=== PATIENT | male | born 1960 | race Caucasian/White ===

== ENCOUNTER → 2020-06-16 10:17 | Outpatient (BNVA) | payer OTHER, SELFPAY | PROVIDERS: PCP Nurse Practitioner Family; Visit Provider Internal Medicine | DX: I82.419 Acute embolism and thrombosis of unspecified femoral vein (principal); I82.439 Acute embolism and thrombosis of unspecified popliteal vein; Z79.01 Long term (current) use of anticoagulants; Z51.81 Encounter for therapeutic drug level monitoring | CPT/HCPCS: 85610; 99211 ==

== ENCOUNTER → 2020-07-05 10:24 | Outpatient (REF) | payer OTHER, SELFPAY ==
--- NOTE | 2020-07-05 10:30 | CA_ITS ---
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 The visually estimated ejection fraction is between 50-55%. - The basal inferior segment is hypokinetic. - There is mild calcification of the aortic valve. Findings Left Ventricle Normal left ventricular cavity size. There is normal left ventricular wall thickness. The left ventricular systolic function is low normal. The visually estimated ejection fraction is between 50-55%. There is no evidence of regional wall motion abnormalities. Diastolic function is normal for age. Wall Motion Rest Echo Findings The basal inferior segment is hypokinetic. Right Ventricle Normal right ventricular cavity size and systolic function. Atria The left atrium is normal in size. The right atrium is normal in size. Aortic Valve There is a normal trileaflet aortic valve. There is mild calcification of the aortic valve. There is no aortic valve stenosis. There is no aortic valve regurgitation. Mitral Valve The mitral valve appears normal. There is trace mitral valve regurgitation. There is no mitral valve stenosis. Pulmonic Valve The pulmonic valve was not well visualized. Tricuspid Valve Normal tricuspid valve structure. There is no tricuspid valve regurgitation. Tricuspid regurgitation envelope is inadequate for calculation of right ventricular systolic pressure. Great Vessels The aortic annulus, sinuses of valsalva, and asc aorta are normal in size. Venous The inferior vena cava is normal in size and collapses greater than 50% with inspiration. Pericardium/Pleural There is no evidence of pericardial effusion. Prior Study Comparison Changes noted compared to prior study dated: 09/19/2017. LVEF slightly lower. Review of images shows basal inferior hypokinesis in prior study. Measurements M-Mode Liner Measurements Normals - Women/Men LVIDd: 4.67 3.9-5.3/4.2-5.9 cm LVIDd Index: 2.21 1.9-3.2 cm/m2 LVIDs: 2.97 2.0-3.8 cm M-Mode Volumes LV EDV: 101.00 LV ESV: 34.20 2D Linear Measurements IVSd: 1.04 0.6-0.9/0.6-1.0 cm LVIDd: 4.61 3.9-5.3/4.2-5.9 cm LVIDd Index: 2.18 2.4-3.2/2.2-3.1 cm/m2 LVIDs: 3.37 2.0-3.6 cm LVPWd: 1.09 0.7-1.1 cm LA Diam: 3.20 2.7-3.8/3.0-4.0 cm LAIDs Index: 1.52 1.5-2.3 cm/m2 LV Mass: 216.54 67-162/88-224 g LV Mass Index: 102.62 43-95/49-115 g/m2 2D Systolic Function EF 4C: 51.90 >55% EF 2C: 53.70 >55% EF BiP: 53.70 >55% M-Mode Systolic Function FS: 36.40 27-47/25-43% LVEF: 66.10 >55% Mitral Valve MV Pk E: 0.92 MV PK A: 0.82 MV Decel Time: 222.00 E/A: 1.10 E'Lateral: 8.70 E'Medial: 9.28 E/E' Med: 9.90 E/E' Lat: 10.60 PHT: 65.00 MVA PHT: 3.38 Decel [place]: 4.15 Aortic Valve AoV Pk Uday: 119.00 AoV Pk Grad: 6.00 Diastolic Function MV Pk E: 0.92 MV Pk A: 0.82 E/A: 1.10 E'Medial: 9.28 E/E' Med: 9.90 E' Laterial: 8.70 E/E' Lat: 10.60 Tricuspid Valve RA Press: 3.00 Updated in Other Vendor System with Status of Final Feng Pelaez MD electronically signed on 07/05/2020 12:31:10 PM with status of Final
== END ==
LOC: HO.CARD 10:24
PROVIDERS: PCP Nurse Practitioner Family; Visit Provider Nurse Practitioner Family
DX: I38 Endocarditis, valve unspecified (principal); R94.30 Abnormal result of cardiovascular function study, unspecified; Z79.01 Long term (current) use of anticoagulants
CPT/HCPCS: 85610; 93306; 99212

== ENCOUNTER → 2020-07-14 11:54 | Outpatient (BNVA) | payer OTHER, SELFPAY | PROVIDERS: PCP Nurse Practitioner Family; Visit Provider Internal Medicine | DX: T82.898A Other specified complication of vascular prosthetic devices, implants and grafts, initial encounter (principal); Z51.81 Encounter for therapeutic drug level monitoring; Z79.01 Long term (current) use of anticoagulants | CPT/HCPCS: 85610; 99211 ==

== ENCOUNTER → 2020-08-04 08:59 | Outpatient (BNVA) | payer OTHER, SELFPAY | PROVIDERS: PCP Nurse Practitioner Family; Visit Provider Internal Medicine | DX: I25.10 Atherosclerotic heart disease of native coronary artery without angina pectoris (principal); I73.9 Peripheral vascular disease, unspecified; R93.1 Abnormal findings on diagnostic imaging of heart and coronary circulation | CPT/HCPCS: 85610; 93005; 99202; 99211 ==

== ENCOUNTER → 2020-08-09 10:45 | Outpatient (BNVA) | payer OTHER, SELFPAY | PROVIDERS: PCP Nurse Practitioner Family; Visit Provider Internal Medicine | DX: T82.898D Other specified complication of vascular prosthetic devices, implants and grafts, subsequent encounter (principal); Z51.81 Encounter for therapeutic drug level monitoring; Z79.01 Long term (current) use of anticoagulants | CPT/HCPCS: 85610; 99211 ==

== ENCOUNTER → 2020-08-18 10:11 | Outpatient (BNVA) | payer OTHER, SELFPAY | PROVIDERS: PCP Nurse Practitioner Family; Visit Provider Surgery Vascular Surgery | DX: I73.9 Peripheral vascular disease, unspecified (principal) | CPT/HCPCS: 99212 ==

== ENCOUNTER → 2020-08-23 09:44 | Outpatient (BNVA) | payer OTHER, SELFPAY | PROVIDERS: PCP Nurse Practitioner Family; Visit Provider Internal Medicine | DX: T82.898A Other specified complication of vascular prosthetic devices, implants and grafts, initial encounter (principal); Z51.81 Encounter for therapeutic drug level monitoring; Z79.01 Long term (current) use of anticoagulants | CPT/HCPCS: 85610; 99211 ==

== ENCOUNTER → 2020-09-08 09:20 | Outpatient (BNVA) | payer OTHER, SELFPAY | PROVIDERS: PCP Nurse Practitioner Family; Visit Provider Internal Medicine | DX: T82.898A Other specified complication of vascular prosthetic devices, implants and grafts, initial encounter (principal); Z51.81 Encounter for therapeutic drug level monitoring; Z79.01 Long term (current) use of anticoagulants | CPT/HCPCS: 85610; 99211 ==

== ENCOUNTER → 2020-10-06 09:09 | Outpatient (BNVA) | payer OTHER, SELFPAY | PROVIDERS: PCP Nurse Practitioner Family; Visit Provider Internal Medicine | DX: T82.898A Other specified complication of vascular prosthetic devices, implants and grafts, initial encounter (principal); I82.409 Acute embolism and thrombosis of unspecified deep veins of unspecified lower extremity; Z51.81 Encounter for therapeutic drug level monitoring; Z79.01 Long term (current) use of anticoagulants | CPT/HCPCS: 85610; 99211 ==

== ENCOUNTER 2020-10-17 | Outpatient (REF) | payer OTHER, SELFPAY | END 2020-10-17 00:01 | LOC: CF | PROVIDERS: Visit Provider Internal Medicine | DX: R31.0 Gross hematuria (principal) | CPT/HCPCS: 85610; 99211 ==

== ENCOUNTER 2020-10-25 | Outpatient (REF) | payer OTHER, SELFPAY | END 2020-10-25 00:01 | disposition home or self-care (01) | LOC: CF | PROVIDERS: PCP Nurse Practitioner Family; Visit Provider Internal Medicine | DX: R31.0 Gross hematuria (principal); T82.898A Other specified complication of vascular prosthetic devices, implants and grafts, initial encounter; Z51.81 Encounter for therapeutic drug level monitoring; Z79.01 Long term (current) use of anticoagulants | CPT/HCPCS: 85610; 99211 ==

== ENCOUNTER 2020-10-25 11:49 | Outpatient (REF) | payer OTHER, SELFPAY ==
--- NOTE | ~2020-10-25 | CT_ITS ---
EXAMINATION: CT ABDOMEN AND PELVIS WITHOUT AND WITH CONTRAST CLINICAL INFORMATION: Hematuria. COMPARISON: None. TECHNIQUE: Noncontrast CT of the abdomen and pelvis is performed followed by split bolus contrast-enhanced images using 85 mL Omnipaque 350 contrast.? Postcontrast imaging is performed during the combined nephrogram and excretion phase. Sagittal and coronal reformatted images were obtained on the technologist's workstation for both the precontrast and postcontrast phases. This CT examination was performed using dose optimization techniques as appropriate, variously including the following: *Automated exposure control *Adjustment of mA and/or kV according to patient size (this includes techniques or standardized protocols for targeted exams where dose is matched to indication/reason for exam; i.e. extremities or head) *Use of iterative reconstruction technique DLP: 868 mGy-cm. FINDINGS: LUNG BASES: The visualized lung bases are unremarkable. LIVER, GALLBLADDER, AND BILIARY TREE: The liver is normal in size, shape, and attenuation. No focal hepatic lesion or biliary ductal dilatation is present. The gallbladder is unremarkable with no evidence of radiopaque gallstones, gallbladder wall thickening, or obvious pericholecystic inflammatory changes. PANCREAS: Unremarkable. SPLEEN: Unremarkable. ADRENAL GLANDS: Unremarkable. KIDNEYS AND URETERS: There are vascular calcifications seen in bilateral renal radha. 2 mm calcification or stone in the lower pole calyx left kidney. No hydronephrosis seen. There is bilateral perinephric stranding. Postcontrast there are bilateral symmetrical nephrograms with a nonenhancing 8 mm cortical cyst lower pole left kidney. The left kidney measures 11.8 cm in length. The right kidney measures 11.3 cm in length. There is no enhancing renal mass. Delayed images reveal excreted contrast opacifying bilateral kidney pelvises and ureters without any obstruction or intraluminal filling defect. Minimal tortuosity seen in the distal segment entering the upper pelvis. The right distal ureter is opacified well and appears unremarkable. The left distal ureter is not well opacified. However, there is no proximal ureteral dilatation. BLADDER: There is mild indentation of the base of bladder from prostate. GASTROINTESTINAL TRACT: There is scattered stool and gas seen throughout the colon without any distention. The small bowel loops, ileocecal junction appear unremarkable. No free air or free fluid. ABDOMINAL WALL: No significant hernia is appreciated. LYMPH NODES: Normal. VASCULAR: Mild ectasia of the distal abdominal aorta measuring 2.3 x 2.4 cm with mild atherosclerotic calcification of abdominal aorta and common iliac arteries. PELVIC VISCERA: The prostate gland is mildly enlarged indenting the base of the bladder. No abnormal pelvic or inguinal lymph nodes seen. Prominent right inguinal canal containing fat is noted. OSSEUS STRUCTURES: There are degenerative disc changes and vacuum disc phenomena L5-S1 disc level. CT/CT urogram IMPRESSION: Punctate nonobstructive 2 mm radiopaque calculi left kidney. Bilateral mild perinephric stranding. Small cyst lower pole cortex left kidney. No enhancing renal mass or hydronephrosis. Mild constipation. Mildly ectatic distal abdominal aorta measuring 2.3 x 2.4 cm.
[2020-10-25] MEDS: iohexoL 350 MG/ML 100 ML INFUS..BTL IV (16:09)
== END 2020-10-25 11:50 | disposition home or self-care (01) ==
LOC: HO.MDS 11:49
PROVIDERS: PCP Nurse Practitioner Family; Visit Provider Urology
DX: R31.0 Gross hematuria (principal)
CPT/HCPCS: 74178; 96360; 96361; Q9967

== ENCOUNTER → 2020-11-03 11:06 | Outpatient (BNVA) | payer OTHER, SELFPAY | PROVIDERS: PCP Nurse Practitioner Family; Visit Provider Internal Medicine | DX: I73.9 Peripheral vascular disease, unspecified (principal); T82.898A Other specified complication of vascular prosthetic devices, implants and grafts, initial encounter; Z51.81 Encounter for therapeutic drug level monitoring; Z79.01 Long term (current) use of anticoagulants | CPT/HCPCS: 85610; 99211 ==

== ENCOUNTER → 2020-11-11 09:16 | Outpatient (BNVA) | payer OTHER, SELFPAY | PROVIDERS: PCP Nurse Practitioner Family; Visit Provider Internal Medicine | DX: I73.9 Peripheral vascular disease, unspecified (principal); T82.898A Other specified complication of vascular prosthetic devices, implants and grafts, initial encounter; Z51.81 Encounter for therapeutic drug level monitoring; Z79.01 Long term (current) use of anticoagulants | CPT/HCPCS: 85610; 99211 ==

== ENCOUNTER 2021-07-06 12:05 | Outpatient (REF) | payer OTHER, SELFPAY ==
[2021-07-06 13:55] LABS: INTERNATIONAL NORM RATIO 0.9 (0.9-1.1); Prothrombin Time 10.7 SEC (9.9-13.0)
[2021-07-06 14:02] LABS: Alanine Aminotransferase 12 U/L (0-40); Albumin Level 4.5 g/dL (3.5-5.0); Alkaline Phosphatase 70 U/L (39-117); Anion Gap 10 (12-20); Aspartate Amino Transferase 14 U/L (5-37); Bilirubin Total 0.4 mg/dL (0.0-1.0); Blood Urea Nitrogen 35 mg/dL (9-16); Calcium 9.9 mg/dL (8.4-10.2); Carbon Dioxide 28 mmol/L (22-29); Chloride 103 mmol/L (96-108); Estimated Glomerular Filt Rate 42; Glucose Random 93 mg/dL (60-115); Potassium 4.4 mmol/L (3.3-5.1); Sodium 137 mmol/L (135-145); Total Protein 7.6 g/dL (6.5-8.0)
[2021-07-06 14:24] LABS: TSH reflex Free T4 1.34 uIU/mL (0.32-4.0)
== END 2021-07-06 12:06 | disposition home or self-care (01) ==
LOC: HO.HMGCLDS 12:05
PROVIDERS: Visit Provider Nurse Practitioner Family
DX: I25.10 Atherosclerotic heart disease of native coronary artery without angina pectoris (principal); I73.9 Peripheral vascular disease, unspecified; Z79.01 Long term (current) use of anticoagulants
CPT/HCPCS: 36415; 80053; 84443; 85610

== ENCOUNTER 2021-07-11 09:22 | Outpatient (REF) | payer OTHER, SELFPAY ==
[2021-07-11 12:12] LABS: Alanine Aminotransferase 14 U/L (0-40); Albumin Level 4.4 g/dL (3.5-5.0); Alkaline Phosphatase 67 U/L (39-117); Anion Gap 12 (12-20); Aspartate Amino Transferase 17 U/L (5-37); Bilirubin Total 0.2 mg/dL (0.0-1.0); Blood Urea Nitrogen 34 mg/dL (9-16); Calcium 9.8 mg/dL (8.4-10.2); Carbon Dioxide 28 mmol/L (22-29); Chloride 106 mmol/L (96-108); Estimated Glomerular Filt Rate 44; Glucose Random 79 mg/dL (60-115); Potassium 4.5 mmol/L (3.3-5.1); Sodium 141 mmol/L (135-145); Total Protein 7.3 g/dL (6.5-8.0)
== END 2021-07-11 09:23 | disposition home or self-care (01) ==
LOC: HO.HMGCLDS 09:22
PROVIDERS: PCP Nurse Practitioner Family; Visit Provider Nurse Practitioner Family
DX: R79.89 Other specified abnormal findings of blood chemistry (principal)
CPT/HCPCS: 36415; 80053

== ENCOUNTER 2022-12-10 11:33 | Outpatient (REF) | payer OTHER, SELFPAY | END 2022-12-10 11:34 | disposition home or self-care (01) | LOC: HO.HMGCLDS 11:33 | PROVIDERS: PCP Nurse Practitioner Family; Visit Provider Nurse Practitioner Family | DX: Z00.00 Encounter for general adult medical examination without abnormal findings (principal); Z12.5 Encounter for screening for malignant neoplasm of prostate; I73.9 Peripheral vascular disease, unspecified; Z79.01 Long term (current) use of anticoagulants | CPT/HCPCS: 36415; 80053; 80061; 81001; 84153; 84443; 85025; 85610 ==

== ENCOUNTER 2022-12-17 13:38 | Outpatient (REF) | payer OTHER, SELFPAY | END 2022-12-17 13:39 | disposition home or self-care (01) | LOC: HO.HMGCLDS 13:38 | PROVIDERS: PCP Nurse Practitioner Family; Visit Provider Nurse Practitioner Family | DX: Z79.01 Long term (current) use of anticoagulants (principal) | CPT/HCPCS: 36415; 85610 ==

== ENCOUNTER 2022-12-25 09:57 | Outpatient (REF) | payer OTHER, SELFPAY ==
[2022-12-25 14:03] LABS: INTERNATIONAL NORM RATIO 1.5 (0.9-1.1); Prothrombin Time 17.7 SEC (10.0-13.1)
== END 2022-12-25 09:58 | disposition home or self-care (01) ==
LOC: HO.HMGCLDS 09:57
PROVIDERS: PCP Nurse Practitioner Family; Visit Provider Nurse Practitioner Family
DX: Z79.01 Long term (current) use of anticoagulants (principal)
CPT/HCPCS: 36415; 85610

== ENCOUNTER 2022-12-28 09:31 | Outpatient (REF) | payer OTHER, SELFPAY ==
[2022-12-28 11:42] LABS: INTERNATIONAL NORM RATIO 2.3 (0.9-1.1); Prothrombin Time 27.4 SEC (10.0-13.1)
== END 2022-12-28 09:32 | disposition home or self-care (01) ==
LOC: HO.HMGCLDS 09:31
PROVIDERS: PCP Nurse Practitioner Family; Visit Provider Nurse Practitioner Family
DX: Z79.01 Long term (current) use of anticoagulants (principal)
CPT/HCPCS: 36415; 85610